=== PATIENT | male | born 1940 ===

== ENCOUNTER → 2023-11-30 11:00 | Outpatient (REF) | payer MEDICARE, SELFPAY ==
[2023-11-30 11:43] LABS: % Basophils 0.5 % (0-2); % Eosinophils 1.6 % (0-6); % Lymphocytes 23.7 % (20.5-51.1); % Monocytes 11.5 % (1.7-9.3); % Neutrophils 61.7 % (42.2-75.2); Absolute Eosinophils 0.1 10^3/uL (0-0.7); Absolute Lymphocytes 0.9 10^3/uL (1.2-3.4); Absolute Monocytes 0.4 10^3/uL (0.1-0.6); Absolute Neutrophils 2.4 10^3/uL (1.4-6.5); Hemoglobin 13.2 g/dL (13.0-18.0); Mean Corp Hgb Conc. 33.8 g/dL (33.0-37.0); Mean Corpuscular Hgb 31.4 pg (27.0-31.0); Mean Corpuscular Volume 92.9 fL (80.0-94.0); Mean Platelet Volume 10.7 fL (7.4-10.4); Nucleated Red Blood Cells % 0 % (-); Platelet Count 181 10^3/uL (130-400); Red Cell Dist. Width 12.7 % (11.5-14.5); White Blood Cell Count 3.8 10^3/uL (4.8-10.8)
[2023-11-30 12:37] LABS: ALT (SGPT) 24 U/L (0-50); AST (SGOT) 29 U/L (17-59); Albumin 4.5 g/dl (3.5-5.0); Alkaline Phosphatase 72 U/L (38-126); Blood Urea Nitrogen 15 mg/dl (9-20); Calcium 9.4 mg/dl (8.4-10.2); Carbon Dioxide 23 mmol/L (22-30); Chloride 104 mmol/L (98-107); Glucose 158 mg/dl (70-99); HDL Cholesterol 59 mg/dl; LDL Cholesterol, Calculated 71 mg/dl; Potassium 4.6 mmol/L (3.5-5.1); Sodium 137 mmol/L (135-145); Total Bilirubin 0.6 mg/dl (0.2-1.3); Total Cholesterol 153 mg/dl (50-199); Total Protein 7.1 g/dl (6.3-8.2); Triglyceride 117 mg/dl (10-149); Very Low Density Lipoprotein 23 mg/dl (0-30); eGFR > 60.00
[2023-11-30 12:41] LABS: C-Reactive Protein < 5.00 mg/L (0.0-10.00)
[2023-11-30 12:57] LABS: Glycohemoglobin (HgbA1c) 7.4 % (4.0-5.6)
[2023-11-30 13:16] LABS: TSH 2.77 uIU/ml (0.47-4.68)
[2023-11-30 13:51] LABS: Folate > 20.0 ng/ml (2.76-20); Vitamin B12 441 pg/ml (239-931)
== END ==
LOC: OLABPV 11:00
PROVIDERS: ATTENDING PHYSICIAN Internal Medicine Geriatric Medicine
DX: N40.0 Benign prostatic hyperplasia without lower urinary tract symptoms (principal); E11.42 Type 2 diabetes mellitus with diabetic polyneuropathy; E78.2 Mixed hyperlipidemia; I10 Essential (primary) hypertension; E03.9 Hypothyroidism, unspecified; E55.9 Vitamin D deficiency, unspecified; Z13.31 Encounter for screening for depression; E11.69 Type 2 diabetes mellitus with other specified complication; D53.9 Nutritional anemia, unspecified; D55.9 Anemia due to enzyme disorder, unspecified
CPT/HCPCS: 36415; 80053; 80061; 82306; 82607; 82746; 83036; 84443; 85025; 86140; 86618

== ENCOUNTER → 2024-01-01 10:14 | Outpatient (REF) | payer MEDICARE, SELFPAY ==
[2024-01-01 11:25] LABS: % Basophils 0.6 % (0-2); % Eosinophils 1.7 % (0-6); % Immature Granulocytes 0.6 % (0-0.5); % Lymphocytes 21.9 % (20.5-51.1); % Monocytes 11.9 % (1.7-9.3); % Neutrophils 63.3 % (42.2-75.2); Absolute Eosinophils 0.1 10^3/uL (0-0.7); Absolute Lymphocytes 1.1 10^3/uL (1.2-3.4); Absolute Monocytes 0.6 10^3/uL (0.1-0.6); Hematocrit 39.8 % (39.0-52.0); Hemoglobin 13.7 g/dL (13.0-18.0); Mean Corp Hgb Conc. 34.4 g/dL (33.0-37.0); Mean Corpuscular Hgb 31.9 pg (27.0-31.0); Mean Corpuscular Volume 92.8 fL (80.0-94.0); Mean Platelet Volume 11.2 fL (7.4-10.4); Nucleated Red Blood Cells % 0 % (-); Platelet Count 192 10^3/uL (130-400); Red Blood Cell Count 4.29 10^6/uL (4.70-6.10); Red Cell Dist. Width 12.8 % (11.5-14.5); White Blood Cell Count 4.8 10^3/uL (4.8-10.8)
== END ==
LOC: OLABPV 10:14
PROVIDERS: ATTENDING PHYSICIAN Internal Medicine Geriatric Medicine
DX: R79.89 Other specified abnormal findings of blood chemistry (principal)
CPT/HCPCS: 36415; 85025

== ENCOUNTER → 2024-01-04 11:12 | Outpatient (REF) | payer MEDICARE, SELFPAY ==
[2024-01-04 12:09] LABS: ALT (SGPT) 19 U/L (0-50); AST (SGOT) 27 U/L (17-59); Albumin 4.7 g/dl (3.5-5.0); Alkaline Phosphatase 67 U/L (38-126); Blood Urea Nitrogen 17 mg/dl (9-20); Calcium 9.9 mg/dl (8.4-10.2); Carbon Dioxide 23 mmol/L (22-30); Chloride 104 mmol/L (98-107); Glucose 162 mg/dl (70-99); Phosphorus 3.8 mg/dl (2.5-4.5); Sodium 136 mmol/L (135-145); Total Bilirubin 0.9 mg/dl (0.2-1.3); eGFR > 60.00
== END ==
LOC: OLABPV 11:12
PROVIDERS: ATTENDING PHYSICIAN Internal Medicine Geriatric Medicine
DX: E11.42 Type 2 diabetes mellitus with diabetic polyneuropathy (principal); E11.69 Type 2 diabetes mellitus with other specified complication
CPT/HCPCS: 36415; 80053; 84100

== ENCOUNTER 2024-01-24 06:40 | Day surgery (SDC) | payer MEDICARE, SELFPAY ==
--- NOTE | 2024-01-22 13:53 | PTCARENOTE ---
Dr. John reviewed patients 01/17 abn ECG- no additional interventions required
--- NOTE | 2024-01-22 13:56 | PTCARENOTE ---
Patients 01/21 ECG abnormal- reviewed by Dr. John- no additional interventions required
[2024-01-24] VITALS (12 sets, daily range): BP systolic 106–154; BP diastolic 60–82; BMI 24.0
[2024-01-24 10:01] LABS: Glucose - Point of Care 178 mg/dl (70-99)
[2024-01-24] MEDS: NORMOSOL-R 1000 IV (10:14)
[2024-01-24 11:57] LABS: Glucose - Point of Care 168 mg/dl (70-99)
[2024-01-24 14:22] LABS: Glucose - Point of Care 135 mg/dl (70-99)
--- NOTE | 2024-01-24 16:15 | PTCARENOTE ---
Patient admitted from [facility] secondary to BPH.The patient is alert and oriented.He rates his pain at a 2 out of 10.Vital signs are stable.Urine is punch colored.The patient is in his bed with the call orozco in reach.
[2024-01-24 16:43] LABS: Glucose - Point of Care 177 mg/dl (70-99)
[2024-01-24] MEDS: NOVOLOG FLEXPEN-LOW RESISTANCE 1 UNITS SC (18:05)
[2024-01-24] MEDS: NSS 1000 IV (19:15)
[2024-01-24] MEDS: TOPROL XL 50 MG PO (20:26)
[2024-01-24 21:48] LABS: Glucose - Point of Care 278 mg/dl (70-99)
[2024-01-25] MEDS: NSS 1000 IV (03:09)
[2024-01-25 03:44] VITALS: BP 108/63
[2024-01-25] MEDS: SYNTHROID 25 MCG PO (06:07)
[2024-01-25 06:48] LABS: Hematocrit 37.1 % (39.0-52.0); Hemoglobin 13.1 g/dL (13.0-18.0)
[2024-01-25 07:10] LABS: Blood Urea Nitrogen 13 mg/dl (9-20); Calcium 8.4 mg/dl (8.4-10.2); Carbon Dioxide 22 mmol/L (22-30); Chloride 107 mmol/L (98-107); Estimated Creatinine Clearance 72 ml/min; Glucose 178 mg/dl (70-99); Potassium 4.2 mmol/L (3.5-5.1); Sodium 137 mmol/L (135-145); eGFR > 60.00
[2024-01-25 07:16] VITALS: BP 124/68
[2024-01-25 08:02] LABS: Glucose - Point of Care 167 mg/dl (70-99)
--- NOTE | 2024-01-25 08:27 | W.PN.URO.CBU ---
Today's Communication / Plan
-
TOV
Discharge
Assessment / Plan
-
83M POD 1 s/p TURP
- Houser out for trial of void/PVR
- Discharge once voiding without difficulty
Diagnosis
-
Date of Service: January 25, 2024
-
Patient Diagnosis:
BPH
Post Op Day: 1 s/p TURP
Subjective
-
no pain
minimal hematuria
off CBI since ~6AM
Objective
-
Vital Signs
Temp Pulse Resp BP Pulse Ox
97.8 F 72 14 124/68 98
01/25/24 07:16 01/25/24 07:16 01/25/24 07:16 01/25/24 07:16 01/25/24 07:16
Intake and Output
01/24/24 01/25/24 01/26/24
06:59 06:59 06:59
Intake Total 2580 / 2580
Output Total 2350 / 2350
Balance 230 / 230
Intake:
Oral fluids 1080 / 1080
IV fluids (Total) 1500 / 1500
Output:
True Urine Output from CBI 2350 / 2350
Laboratory Results
01/25/24 06:22
01/25/24 06:22
Physical Exam
-
General - well developed, well nourished, no acute distress
Chest - clear bilaterally
Abdomen - soft, non-tender
Houser in place, light pink off CBI
Skin - warm & dry with no rash
[2024-01-25] MEDS: NOVOLOG FLEXPEN-LOW RESISTANCE 1 UNITS SC (08:49)
[2024-01-25] MEDS: ASPIR LOW (ENTERIC COATED) 81 MG PO (08:50)
[2024-01-25] MEDS: PROSCAR 5 MG PO (08:50)
[2024-01-25] MEDS: JANUVIA 50 MG PO (08:50)
[2024-01-25] MEDS: GLUCOPHAGE 1000 MG PO (08:50)
[2024-01-25] MEDS: TOPROL XL 50 MG PO (08:50)
[2024-01-25] MEDS: FLOMAX 0.4 MG PO (08:50)
[2024-01-25] MEDS: LIPITOR 20 MG PO (08:51)
[2024-01-25 11:40] VITALS: BP 119/69
[2024-01-25 11:59] LABS: Glucose - Point of Care 212 mg/dl (70-99)
[2024-01-25] MEDS: NOVOLOG FLEXPEN-LOW RESISTANCE 2 UNITS SC (12:16)
--- NOTE | 2024-01-25 14:15 | CM ---
Met with patient at bedside; initial assessment completed
Pharmacy verified: [facility] @ [id number] [facility]
IMM explained; form signed @ [id number]
Patient lives alone @ [facility]; one floor apartment; elevator access; bath has walk-in stall shower, grab bar and seat
PLOF: reports he is independent with ambulation and ADLs; drives
DME: [employer]
Transportation: son will provide ride home
Plan: discharge to home today; no needs
== END 2024-01-25 15:23 | disposition home or self-care (01) ==
LOC: SDS 06:40
PROVIDERS: ATTENDING PHYSICIAN Urology; FAMILY PHYSICIAN Internal Medicine Geriatric Medicine
DX: N40.0 Benign prostatic hyperplasia without lower urinary tract symptoms (principal)
CPT/HCPCS: 52601; 80048; 82962; 83036; 85014; 85018

== ENCOUNTER → 2024-03-19 09:17 | Outpatient (REF) | payer MEDICARE, SELFPAY | LOC: RCS 09:17 | PROVIDERS: ATTENDING PHYSICIAN Internal Medicine Cardiovascular Disease; FAMILY PHYSICIAN Internal Medicine Geriatric Medicine | DX: I10 Essential (primary) hypertension (principal); I25.10 Atherosclerotic heart disease of native coronary artery without angina pectoris | CPT/HCPCS: 93306 ==

== ENCOUNTER → 2024-03-20 06:59 | Outpatient (REF) | payer MEDICARE, SELFPAY | LOC: DHCBC/DCA 06:59 | PROVIDERS: ATTENDING PHYSICIAN Internal Medicine Cardiovascular Disease; FAMILY PHYSICIAN Internal Medicine Geriatric Medicine | DX: I10 Essential (primary) hypertension (principal); I25.10 Atherosclerotic heart disease of native coronary artery without angina pectoris | CPT/HCPCS: 78452; 93017; A9500 ==

== ENCOUNTER → 2024-04-18 11:48 | Outpatient (REF) | payer MEDICARE, SELFPAY ==
[2024-04-18 12:41] LABS: % Basophils 0.8 % (0-2); % Eosinophils 1.2 % (0-6); % Lymphocytes 28.8 % (20.5-51.1); % Monocytes 9.2 % (1.7-9.3); Absolute Eosinophils 0.1 10^3/uL (0-0.7); Absolute Immature Granulocytes 0.1 10^3/uL (0-0.05); Absolute Lymphocytes 1.5 10^3/uL (1.2-3.4); Absolute Monocytes 0.5 10^3/uL (0.1-0.6); Hematocrit 39.2 % (39.0-52.0); Hemoglobin 13.4 g/dL (13.0-18.0); Mean Corp Hgb Conc. 34.2 g/dL (33.0-37.0); Mean Corpuscular Hgb 30.7 pg (27.0-31.0); Mean Corpuscular Volume 89.9 fL (80.0-94.0); Mean Platelet Volume 11.4 fL (7.4-10.4); Nucleated Red Blood Cells % 0 % (-); Platelet Count 218 10^3/uL (130-400); Red Blood Cell Count 4.36 10^6/uL (4.70-6.10); Red Cell Dist. Width 12.8 % (11.5-14.5); White Blood Cell Count 5.1 10^3/uL (4.8-10.8)
[2024-04-18 12:54] LABS: ALT (SGPT) 19 U/L (0-50); AST (SGOT) 23 U/L (17-59); Albumin 4.6 g/dl (3.5-5.0); Alkaline Phosphatase 62 U/L (38-126); Blood Urea Nitrogen 14 mg/dl (9-20); Calcium 9.3 mg/dl (8.4-10.2); Carbon Dioxide 25 mmol/L (22-30); Chloride 105 mmol/L (98-107); Glucose 166 mg/dl (70-99); HDL Cholesterol 72 mg/dl; LDL Cholesterol, Calculated 53 mg/dl; Phosphorus 4.1 mg/dl (2.5-4.5); Potassium 4.3 mmol/L (3.5-5.1); Sodium 144 mmol/L (135-145); Total Bilirubin 0.6 mg/dl (0.2-1.3); Total Cholesterol 151 mg/dl (50-199); Total Protein 6.9 g/dl (6.3-8.2); Triglyceride 130 mg/dl (10-149); Very Low Density Lipoprotein 26 mg/dl (0-30); eGFR > 60.00
[2024-04-18 13:04] LABS: Urine Albumin Trace (Neg - Trace); Urine Bilirubin Negative (Negative); Urine Character Slightly Cloudy (Clear); Urine Color Yellow; Urine Glucose 2+ (Negative); Urine Ketone Negative (Negative); Urine Leukocyte Trace (Negative); Urine Nitrite Negative (Negative); Urine Occult Blood Negative (Negative); Urine Specific Gravity 1.025 (<1.030); Urine Urobilinogen Negative (Neg - 1+)
[2024-04-18 13:10] LABS: Vitamin D, 25-OH*** 51.4 ng/mL (30-80)
[2024-04-18 13:23] LABS: TSH 3.42 uIU/ml (0.47-4.68)
[2024-04-18 13:55] LABS: Urine Bacteria Many (Negative); Urine Red Blood Cell 0-2 /HPF (0-2); Urine Squamous Cell 0-2 /LPF (Few)
[2024-04-18 13:58] LABS: Glycohemoglobin (HgbA1c) 7.1 % (4.0-5.6)
== END ==
LOC: OLABPV 11:48
PROVIDERS: ATTENDING PHYSICIAN Internal Medicine Geriatric Medicine
DX: E11.69 Type 2 diabetes mellitus with other specified complication (principal); E78.00 Pure hypercholesterolemia, unspecified; N40.0 Benign prostatic hyperplasia without lower urinary tract symptoms; I10 Essential (primary) hypertension; E03.9 Hypothyroidism, unspecified; E55.9 Vitamin D deficiency, unspecified; R41.3 Other amnesia; Z13.89 Encounter for screening for other disorder; I25.10 Atherosclerotic heart disease of native coronary artery without angina pectoris
CPT/HCPCS: 36415; 80053; 80061; 81003; 81015; 82306; 83036; 84100; 84439; 84443; 85025

== ENCOUNTER → 2024-10-20 09:15 | Outpatient (REF) | payer MEDICARE, SELFPAY ==
[2024-10-21 11:02] LABS: Urine Albumin Negative (Neg - Trace); Urine Bilirubin Negative (Negative); Urine Character Clear (Clear); Urine Color Yellow; Urine Glucose Negative (Negative); Urine Ketone Negative (Negative); Urine Leukocyte Negative (Negative); Urine Nitrite Negative (Negative); Urine Occult Blood Negative (Negative); Urine Specific Gravity 1.015 (<1.030); Urine Urobilinogen Negative (Neg - 1+)
[2024-10-21 12:11] LABS: % Basophils 0.6 % (0-2); % Eosinophils 1.5 % (0-6); % Immature Granulocytes 0.7 % (0-0.5); % Lymphocytes 26.3 % (20.5-51.1); % Monocytes 9.1 % (1.7-9.3); % Neutrophils 61.8 % (42.2-75.2); Absolute Eosinophils 0.1 10^3/uL (0-0.7); Absolute Lymphocytes 1.4 10^3/uL (1.2-3.4); Absolute Monocytes 0.5 10^3/uL (0.1-0.6); Absolute Neutrophils 3.3 10^3/uL (1.4-6.5); Hematocrit 41.9 % (39.0-52.0); Mean Corp Hgb Conc. 33.4 g/dL (33.0-37.0); Mean Corpuscular Volume 92.9 fL (80.0-94.0); Mean Platelet Volume 10.9 fL (7.4-10.4); Nucleated Red Blood Cells % 0 % (-); Platelet Count 224 10^3/uL (130-400); Red Blood Cell Count 4.51 10^6/uL (4.70-6.10); Red Cell Dist. Width 12.8 % (11.5-14.5); White Blood Cell Count 5.4 10^3/uL (4.8-10.8)
[2024-10-21 12:28] LABS: ALT (SGPT) 16 U/L (0-50); AST (SGOT) 22 U/L (17-59); Albumin 4.9 g/dl (3.5-5.0); Alkaline Phosphatase 65 U/L (38-126); Blood Urea Nitrogen 18 mg/dl (9-20); Calcium 9.5 mg/dl (8.4-10.2); Carbon Dioxide 24 mmol/L (22-30); Chloride 104 mmol/L (98-107); Glucose 174 mg/dl (70-99); HDL Cholesterol 60 mg/dl; LDL Cholesterol, Calculated 76 mg/dl; Potassium 4.5 mmol/L (3.5-5.1); Sodium 141 mmol/L (135-145); Total Bilirubin 0.8 mg/dl (0.2-1.3); Total Cholesterol 161 mg/dl (50-199); Total Protein 7.3 g/dl (6.3-8.2); Triglyceride 126 mg/dl (10-149); Very Low Density Lipoprotein 25 mg/dl (0-30); eGFR > 60.00
[2024-10-21 12:44] LABS: Free T4 0.94 ng/dl (0.78-2.19); Vitamin D, 25-OH*** 58.6 ng/mL (30-80)
== END ==
LOC: OLABPV 09:15
PROVIDERS: ATTENDING PHYSICIAN Internal Medicine Geriatric Medicine
DX: E11.42 Type 2 diabetes mellitus with diabetic polyneuropathy (principal); E11.69 Type 2 diabetes mellitus with other specified complication; E78.2 Mixed hyperlipidemia; N40.0 Benign prostatic hyperplasia without lower urinary tract symptoms; I10 Essential (primary) hypertension; E03.9 Hypothyroidism, unspecified; E55.9 Vitamin D deficiency, unspecified; R41.3 Other amnesia; Z13.89 Encounter for screening for other disorder; I25.10 Atherosclerotic heart disease of native coronary artery without angina pectoris
CPT/HCPCS: 36415; 80053; 80061; 81003; 82306; 83036; 84439; 84443; 85025

== ENCOUNTER → 2025-03-03 10:29 | Outpatient (REF) | payer MEDICARE, SELFPAY ==
[2025-03-03 12:46] LABS: Glycohemoglobin (HgbA1c) 6.9 % (4.0-5.6)
[2025-03-03 14:02] LABS: ALT (SGPT) 18 U/L (0-50); AST (SGOT) 24 U/L (17-59); Albumin 4.9 g/dl (3.5-5.0); Alkaline Phosphatase 62 U/L (38-126); Blood Urea Nitrogen 17 mg/dl (9-20); Calcium 9.8 mg/dl (8.4-10.2); Carbon Dioxide 23 mmol/L (22-30); Chloride 106 mmol/L (98-107); Glucose 151 mg/dl (70-99); Potassium 4.5 mmol/L (3.5-5.1); Sodium 139 mmol/L (135-145); Total Protein 7.3 g/dl (6.3-8.2); eGFR > 60.00
== END ==
LOC: OLABPV 10:29
PROVIDERS: ATTENDING PHYSICIAN Internal Medicine Geriatric Medicine
DX: E11.69 Type 2 diabetes mellitus with other specified complication (principal); E11.42 Type 2 diabetes mellitus with diabetic polyneuropathy; E78.2 Mixed hyperlipidemia; N40.0 Benign prostatic hyperplasia without lower urinary tract symptoms; I10 Essential (primary) hypertension; E03.9 Hypothyroidism, unspecified; E55.9 Vitamin D deficiency, unspecified; R41.3 Other amnesia; Z13.89 Encounter for screening for other disorder; I25.10 Atherosclerotic heart disease of native coronary artery without angina pectoris
CPT/HCPCS: 36415; 80053; 80069; 83036

== ENCOUNTER 2025-03-17 10:54 | Emergency (ER) | payer MEDICARE, SELFPAY ==
[2025-03-17 11:06] VITALS: BP 128/84
[2025-03-17 11:21] LABS: Hematocrit 39.8 % (39.0-52.0); Hemoglobin 13.9 g/dL (13.0-18.0); Mean Corp Hgb Conc. 34.9 g/dL (33.0-37.0); Mean Corpuscular Volume 88.8 fL (80.0-94.0); Nucleated Red Blood Cells % 0 % (-); Platelet Count 175 10^3/uL (130-400); Red Cell Dist. Width 12.6 % (11.5-14.5)
[2025-03-17 11:35] LABS: ALT (SGPT) 22 U/L (0-50); AST (SGOT) 24 U/L (17-59); Albumin 4.9 g/dl (3.5-5.0); Alkaline Phosphatase 73 U/L (38-126); Blood Urea Nitrogen 23 mg/dl (9-20); Calcium 10.8 mg/dl (8.4-10.2); Carbon Dioxide 23 mmol/L (22-30); Chloride 102 mmol/L (98-107); Glucose 171 mg/dl (70-99); Potassium 5.0 mmol/L (3.5-5.1); Sodium 136 mmol/L (135-145); Total Protein 7.7 g/dl (6.3-8.2); eGFR > 60.00
[2025-03-17 11:44] LABS: Troponin I < 0.012 ng/ml
--- NOTE | 2025-03-17 12:15 | ED.GENMED ---
History of Present Illness
General
Chief Complaint: Chest Pain
Time Seen by Provider: 03/17/25 12:02
History of Present Illness
History of Present Illness:
84-year-old male with history of paroxysmal A-fib, CAD, hypertension, hyperlipidemia, and sym-rsbmfvc-cacxtbywk diabetes presents to the emergency department for evaluation of chest discomfort as well as upper body myalgia/arthralgia and
lightheadedness today. Stiff throughout the morning but it gradually improved, however he states that he still has moderate chest discomfort. He is sure to inform me that this is not 'painful'. Denies any provoking or palliating factors. Does
not feel fever or chills currently. No recent coughing or shortness of breath. Does note that he was started on a new medication approximately 2 weeks ago by his primary care physician to 'lower something in the blood' but he is not certain what
this medication is.
Review of Systems
Review of Systems
Allergies reviewed?: Yes
All Other Systems: ROS reviewed and negative except as documented in HPI and ROS
Phy Exam
Physical Exam
Physical Exam:
GEN: Well appearing, NAD, WDWN
HEENT: Oral mucosa moist, no scleral icterus
Cardiac: Regular rate and rhythm, no murmurs, occasional extrasystoles
Lung: No respiratory distress, no tachypnea, lungs clear to auscultation
MSK: No gross deformity or injuries
Skin: Good color, no pallor or jaundice, no rashes
Neuro: AO x3, moves all extremities freely
Psych: Calm, cooperative
Scores
Heart Score for Chest Pain Patients
STEMI patient?: No
History: Slightly or Non-Suspicious
ECG: Normal
Age: >/= 65 years
Risk Factors: >/= 3 Risk Factors or History of CAD
Troponin: </= Normal Limit
Heart Score for Chest Pain Patients: 4
Heart Score Risk: 20.3% MACE over next 6 weeks
Course
Orders/Labs/Results
Orders:
Orders
03/17/25 10:55
Electrocardiogram (*1) Urgent
Reason for Study: Chest Pain
03/17/25 10:56
EKG- Treatment ONCE
03/17/25 11:12
Complete Blood Count/With Diff Urgent
Comprehensive Metabolic Panel Urgent
Troponin I Urgent
03/17/25 12:14
EKG- Treatment ONCE
03/17/25 12:21
COVID-19 Antigen Urgent
Source: Nasal Swab
03/17/25 13:10
Troponin I Urgent
03/17/25 13:15
Electrocardiogram (*1) Urgent
Reason for Study: Chest Pain
Abnormal Lab Results
03/17/25
11:12
RBC 4.48 L 10^6/uL
(4.70-6.10)
MPV 10.8 H fL
(7.4-10.4)
Abs Immat Gran (auto) 0.1 H 10^3/uL
(0-0.05)
Absolute Neuts (auto) 8.5 H 10^3/uL
(1.4-6.5)
Absolute Lymphs (auto) 0.7 L 10^3/uL
(1.2-3.4)
Absolute Monos (auto) 1.0 H 10^3/uL
(0.1-0.6)
Immature Gran % 0.7 H %
(0-0.5)
Neutrophils % 82.8 H %
(42.2-75.2)
Lymphocytes % 6.5 L %
(20.5-51.1)
Monocytes % 9.4 H %
(1.7-9.3)
BUN 23 H mg/dl
(9-20)
Glucose 171 H mg/dl
(70-99)
Calcium 10.8 H mg/dl
(8.4-10.2)
Total Bilirubin 1.8 H mg/dl
(0.2-1.3)
03/17/25 11:12
03/17/25 11:12
Vital Signs
Initial and Last Documented VS:
Initial Vital Signs
Temp Pulse Resp BP Pulse Ox
97.5 F 100 18 128/84 97
03/17/25 11:06 03/17/25 11:06 03/17/25 11:06 03/17/25 11:06 03/17/25 11:06
Last Documented Vital Signs
Temp Pulse Resp BP Pulse Ox
97.5 F 100 18 128/84 97
03/17/25 11:06 03/17/25 11:06 03/17/25 11:06 03/17/25 11:06 03/17/25 12:17
MDM/Problems Addressed
MDM/Problems Addressed:
Patient's symptoms seem to be dramatically improved at this time, initial and repeat troponins are negative, labs otherwise reassuring and COVID test negative. Unclear etiology of symptoms but at this time patient is stable for further outpatient
workup if needed
Comment
Comment:
EKG independently interpreted by me shows a sinus rhythm at a rate of 91 w/ occasional PVCs, no ST changes suspicious for ischemia
*Pulse Oximetry
SaO2: 97
Oxygen Mode of Delivery: Room air
Patient hypoxic: no
*Critical Care Note
Total Time (30-74mins, 75-104mins- exclusive of procedures): Not Applicable
ED Attending Note
-
Portions of this chart may have been created with voice recognition software.� Occasional wrong word or��sound alike� substitutions may have occurred due to the inherent limitations of voice recognition software.
Discharge Plan
Departure
Patient Disposition: Home (Routine Discharge)
Date of Disposition: 03/17/25
Time of Disposition: 13:56
Patient with high blood pressure during this ER visit?: No
Discharge Problem:
Atypical chest pain
Instructions: Chest Pain That Is Not Caused by the Heart (DC)
Prescriptions:
No Action
atorvastatin 20 mg Tablet
20 mg PO DAILY
metoprolol succinate 50 mg Tablet Extended Release 24 Hr
50 mg PO BID
aspirin 81 mg Tablet,Delayed Release (Dr/Ec)
81 mg PO DAILY
levothyroxine 25 mcg Tablet
25 mcg PO DAILY
ascorbic acid (vitamin C) [Vitamin C] 500 mg Tablet
500 mg PO .2 TIMES A WEEK
tamsulosin 0.4 mg Capsule
0.4 mg PO DAILY
metformin 1,000 mg Tablet
1,000 mg PO BIDWMEAL
cholecalciferol (vitamin D3) [Vitamin D3] 25 mcg (1,000 unit) Capsule
25 mcg PO DAILY
jobftybickcu-bfbjevpf-fqpjkr Tablet
1 tab PO DAILY
dutasteride 0.5 mg Capsule
0.5 mg PO DAILY
Systane (PF) 0.4-0.3 % Dropperette
1 drp BOTH EYES DAILY
Januvia 50 mg Tablet
50 mg PO DAILY
omega 7-npt-msl-fish oil [Fish Oil] 1,200 (144-216) mg Capsule
1 cap PO DAILY
Diclofenac Ointment
1 dose topical PRN PRN (Reason: arthritis in hands)
Nasal Sinus Wash
1 dose instillation DAILY
Probiotic
200 mg PO .2 TIMES A WEEK
Referrals:
Kalpesh Dee MD [Family Provider, Internal Medicine]
Interventions
Interventions:
*Risk Screen - Suicide Last Done: 03/17/25 11:06
*General Assessment Last Done: 03/17/25 11:06
*Neglect/Abuse Screening Last Done: 03/17/25 11:06
*ED- Fall Risk Assessment Last Done: 03/17/25 14:31
*ED COVID-19 Vaccine History Last Done: 03/17/25 14:31
*Nursing Disposition Last Done: 03/17/25 14:31
ED- Cardiac Assessment Last Done: 03/17/25 14:31
Discharge Date and Time
Discharge Date/Time: 03/17/25 14:32
Print Language: SPANISH
[2025-03-17 12:43] LABS: COVID-19 Antigen Negative (Negative)
[2025-03-17 13:42] LABS: Troponin I < 0.012 ng/ml
== END 2025-03-17 14:32 | disposition home or self-care (01) ==
LOC: EMR 10:54
PROVIDERS: Physician Assistant; EMERGENCY PHYSICIAN Emergency Medicine; FAMILY PHYSICIAN Internal Medicine Geriatric Medicine
DX: R07.89 Other chest pain (principal); I49.3 Ventricular premature depolarization; E11.9 Type 2 diabetes mellitus without complications; I25.10 Atherosclerotic heart disease of native coronary artery without angina pectoris; I48.0 Paroxysmal atrial fibrillation; I10 Essential (primary) hypertension; E78.5 Hyperlipidemia, unspecified; Z79.84 Long term (current) use of oral hypoglycemic drugs; Z79.82 Long term (current) use of aspirin
CPT/HCPCS: 99284; 80053; 84484; 85025; 87811; 93005